=== PATIENT | male | born 1955 | race Caucasian/White ===

== ENCOUNTER → 2020-10-26 03:08 | Outpatient (CLI) | payer MEDICARE, SELFPAY ==
[2020-10-26 19:50] LABS: SARS-CoV-2 RNA PCR Negative
== END ==
PROVIDERS: PCP Nurse Practitioner Family; Visit Provider Internal Medicine Gastroenterology
DX: Z01.812 Encounter for preprocedural laboratory examination (principal); Z20.822 Contact with and (suspected) exposure to COVID-19
CPT/HCPCS: C9803; U0003; U0005

== ENCOUNTER 2020-10-29 00:28 | Day surgery (SDC) | payer MEDICARE, SELFPAY ==
[2020-10-16 15:30] VITALS: BMI 23.1
[2020-10-29 06:57] VITALS: BP 139/87; PULSE 77; RESP 18; TEMP 36.1; O2SAT 98; BMI 22.8
--- NOTE | 2020-10-29 07:03 | WPDANESEPPF ---
Anes - Initial Pre Proc Eval Procedure: Operation Date: 10/29/20 08:00 Proposed Procedures p Colonoscopy - Vinod Feliciano MD Date/Time: 10/29/20 07:03 Surgeon: Vinod Feliciano MD Pre Op Diagnosis: diarrhea Patient Data Age: 65 Gender: M Height: 1.91 m Weight: 83.1 kg Last Vital Signs Temp 36.1 C L 10/29/20 06:57 Pulse 77 10/29/20 06:57 Resp 18 10/29/20 06:57 BP 139/87 10/29/20 06:57 Pulse Ox 98 10/29/20 06:57 Allergies Allergy/AdvReac Type Severity Reaction Status Date / Time No Known Allergies Allergy Mild Verified 10/29/20 06:51 Home Medications Medication Instructions Recorded Confirmed Type ibuprofen 200 mg capsule 200 mg PO Q6H PRN 11/28/19 10/16/20 History acetaminophen 325 mg tablet 650 mg PO Q6H PRN 09/04/20 10/16/20 History aopsimwk-dtu-nzlcc acid 300 1 tablet PO DAILY 09/04/20 10/16/20 History mcg-lycopene 600 mcg-lutein 300 mcg tablet omega-3 fatty acids 1,000 mg 1,000 mg PO DAILY 09/04/20 10/16/20 History capsule sodium,potassium,mag sulfates 17.5 See Rx Instructions PO .COMPLEX 10/08/20 10/29/20 Rx gram-3.13 gram-1.6 gram oral soln #354 ml cholecalciferol (vitamin D3) 25 mcg PO DAILY 10/16/20 10/16/20 History [Vitamin D3] Patient hx anesthesia problems: none Family hx anesthesia problems: none PMFSH Past Medical History Medical History (Updated 10/29/20 @ 07:04 by Vince Luke DO) Abdominal pain Anemia, secondary to hemorrhoids Diarrhea GERD (gastroesophageal reflux disease) Hemorrhoids Metacarpophalangeal joint pain Surgical History Surgical History History of hemorrhoidectomy 2011 History of vasectomy 1991 Family History Family History Father Family history of Alzheimer's disease Hypertension Mother Family history of heart disease in male family member before age 55 Family history of cardiac disorder Family history of Alzheimer's disease Heart disease Grandparent Family history of Parkinson's disease Sibling Esophageal cancer Depression Social History Social History Smoking status: Never smoker Second hand tobacco smoke exposure: No Alcohol intake: current Drinks per week: 14 Substance use: never Substance use type: does not use Living arrangements: with family Gender identity (if verbalized by the patient): Male Spiritual care concerns: No Anes - Eval Final PreProcedure Day of Procedure 10/29/20 07:03 Patient weight: normal Heart: regular rate and rhythm Lungs: clear to auscultation and normal air movement Airway: Mallampati scale class II Neurological: alert and oriented Last oral intake: >/= 8 hours ASA classification: III Emergent: no Anesthetic plan: proceed Anesthesia type and monitoring: general GIVS and standard monitoring Informed Consent: The patient's anesthetic plan and its attendant risks and benefits were discussed with the patient/family/POA. Questions were solicited and answers provided to the satisfaction of the patient/family/POA.
[2020-10-29] MEDS: LACTATED RINGERS 1,000 ML 150 ML IV CONT (07:07)
--- NOTE | 2020-10-29 07:56 | WPDGICN ---
Assessment and Plan Assessment and plan (1) Diarrhea: Code(s): R19.7 - Diarrhea, unspecified Status: Acute Assessment and Plan: patient has persistent diarrhea lasting more than 2 months. He has had negative cultures with no response to empiric antibiotic trial. Colonoscopy today to assess for etiology of diarrhea. (2) Abdominal pain: Code(s): R10.9 - Unspecified abdominal pain Status: Acute (3) GERD (gastroesophageal reflux disease): Code(s): K21.9 - Gastro-esophageal reflux disease without esophagitis Status: Inactive Assessment and Plan: Currently stable on therapy GI Consult Note Consult date/time: 10/29/20 07:56 HPI: Catarino South is a 65 year old male Presents for screening colonoscopy. Patient reports diarrhea over the last 2-3 months. Has been rather persistent. Patient is taking empiric antibiotic trial of ciprofloxacin with no change in diarrhea. Stool cultures are performed found to be noncontributory. Most recent colonoscopy 2019 revealed internal hemorrhoids. His family history is noncontributory. No one else in the family has been ill. Patient denies any bleeding. Has had no specific abdominal pain. He denies weight loss. Because of ongoing abdominal diarrhea he presents today for colonoscopy. Review of Systems Review of Systems: All systems reviewed & are unremarkable except as noted in HPI and below PMFSH Past Medical History Medical History (Updated 10/29/20 @ 07:58 by Vinod Feliciano MD) Abdominal pain Anemia, secondary to hemorrhoids Diarrhea GERD (gastroesophageal reflux disease) Hemorrhoids Metacarpophalangeal joint pain Surgical History Surgical History History of hemorrhoidectomy 2011 History of vasectomy 1991 Family History Family History Father Family history of Alzheimer's disease Hypertension Mother Family history of heart disease in male family member before age 55 Family history of cardiac disorder Family history of Alzheimer's disease Heart disease Grandparent Family history of Parkinson's disease Sibling Esophageal cancer Depression Social History Social History Smoking status: Never smoker Second hand tobacco smoke exposure: No Alcohol intake: current Drinks per week: 14 Substance use: never Substance use type: does not use Living arrangements: with family Gender identity (if verbalized by the patient): Male Spiritual care concerns: No Meds Home Medications and Allergies Home Medications Medication Instructions Recorded Confirmed Type ibuprofen 200 mg capsule 200 mg PO Q6H PRN 11/28/19 10/16/20 History acetaminophen 325 mg tablet 650 mg PO Q6H PRN 09/04/20 10/16/20 History hkljrech-kaq-ackhj acid 300 1 tablet PO DAILY 09/04/20 10/16/20 History mcg-lycopene 600 mcg-lutein 300 mcg tablet omega-3 fatty acids 1,000 mg 1,000 mg PO DAILY 09/04/20 10/16/20 History capsule sodium,potassium,mag sulfates 17.5 See Rx Instructions PO .COMPLEX 10/08/20 10/29/20 Rx gram-3.13 gram-1.6 gram oral soln #354 ml cholecalciferol (vitamin D3) 25 mcg PO DAILY 10/16/20 10/16/20 History [Vitamin D3] Allergies Allergy/AdvReac Type Severity Reaction Status Date / Time No Known Allergies Allergy Mild Verified 10/29/20 06:51 Vital Signs Vital Signs - 24 hr 10/29/20 06:57 Temperature 97 F L Pulse Rate 77 Respiratory Rate 18 Blood Pressure 139/87 Pulse Oximetry 98 Exam Narrative: Exam Narrative: Physical exam reveals patient to be alert. Vital signs stable. HEENT exam is unremarkable. Patient is anicteric. Lungs are clear to auscultation and percussion. Heart is without murmur or extra sounds. Abdominal exam bowel sounds are present soft nontender with no organomegaly. Digital external
[2020-10-29] MEDS: SIMETHICONE ORAL SUSPENSION 20 MG/0.3 ML 30 ML BOTTLE 0.6 ML IRRIGATION (08:10)
[2020-10-29 08:19] VITALS: BP 118/88; PULSE 71; RESP 18; O2SAT 97
[2020-10-29 08:29] VITALS: BP 116/84; PULSE 72; RESP 18; O2SAT 98
[2020-10-29 08:39] VITALS: BP 134/98; PULSE 66; RESP 20; O2SAT 99
== END 2020-10-29 08:48 | disposition home or self-care (01) ==
PROVIDERS: PCP Nurse Practitioner Family; Visit Provider Internal Medicine Gastroenterology
PROC: 0DJD8ZZ Inspection of Lower Intestinal Tract, Via Natural or Artificial Opening Endoscopic (ICD-10-PCS; CPT 45378; principal; 2020-10-29 08:00)
DX: R19.7 Diarrhea, unspecified (principal); K64.8 Other hemorrhoids; K21.9 Gastro-esophageal reflux disease without esophagitis; R10.9 Unspecified abdominal pain; D64.9 Anemia, unspecified
CPT/HCPCS: 45380; 88305; C9803; J2704; J7120; U0003; U0005

== ENCOUNTER 2020-12-17 07:35 | Outpatient (CLI) | payer MEDICARE, SELFPAY ==
--- NOTE | ~2020-12-17 | XR_ITS ---
EXAMINATION: XR UGIAC w small bowel DATE: 12/17/2020 09:55 INDICATION: Diarrhea TECHNIQUE: The patient drank thick barium, gas-producing crystals, and thin barium. Conventional supi ne abdomen radiographs and fluoroscopic spot radiographs of the esophagus, stomach, and proximal smal l bowel were obtained. Additional overhead radiographs were obtained during the transit through the s mall bowel. Spot fluoroscopic images of the small bowel were obtained upon contrast reaching the cec um. A total of 9 radiographs and 764 fluoroscopic images were obtained. Fluoroscopy exposure time was 2.3 minutes. Total DAP was 37.725 mGycm^2. COMPARISON: 08/15/2011 FINDINGS: There is a small pulsion diverticulum along the left posterior wall of the esophagus locate d approximately 15 cm above the gastroesophageal junction. The esophagus is otherwise normal without mass or stricture. Esophageal motility is normal. There is no hiatal hernia. There was no gastroesoph ageal reflux with provocative maneuvers. The stomach and proximal small bowel are normal. Transit time from the stomach to proximal colon was approximately 1 hour and 30 minutes. There is nor mal caliber and mucosal fold pattern throughout the small bowel. Terminal ileum is normal. There is p rominent peristaltic activity throughout the small bowel with no tethering or abnormal mass effect ob served upon the small bowel with real-time fluoroscopy. IMPRESSION: 1. Small pulsion diverticulum at the mid esophagus. Otherwise normal upper GI study. 2. Very active peristaltic activity throughout the small bowel. Otherwise unremarkable small bowel fo llow-through. Reviewed, dictated and finalized at location A. IMPRESSION: 1. Small pulsion diverticulum at the mid esophagus. Otherwise normal upper GI s tudy. 2. Very active peristaltic activity throughout the small bowel. Otherwise unrem arkable small bowel follow-through.
== END 2020-12-17 07:36 | disposition home or self-care (01) ==
PROVIDERS: PCP Nurse Practitioner Family; Visit Provider Internal Medicine Gastroenterology
DX: R19.7 Diarrhea, unspecified (principal)
CPT/HCPCS: 74246; 74248

== ENCOUNTER → 2021-01-14 10:53 | Outpatient (CLI) | payer MEDICARE, SELFPAY ==
--- NOTE | ~2021-01-14 | XR_ITS ---
EXAMINATION: XR chest 2V EXAM DATE: 01/14/2021 11:09 INDICATION: R05 - Cough . TECHNIQUE: Frontal and lateral projections of the chest obtained and reviewed. Comparison is made to prior examination from 08/21/2018. FINDINGS: Symmetric nodular densities likely patient's nipples. The lungs are clear. There are no p leural effusions. The cardiomediastinal silhouette is within normal limits. There is no pneumothora x suspected. The bones and soft tissues are unremarkable. IMPRESSION: No acute cardiopulmonary findings. Reviewed, dictated and finalized at location B.
== END ==
PROVIDERS: PCP Family Medicine; Visit Provider Nurse Practitioner Family
DX: R05 Cough (principal)
CPT/HCPCS: 71046

== ENCOUNTER 2021-08-08 10:03 | Outpatient (CLI) | payer MEDICARE, SELFPAY ==
[2021-08-16 21:28] LABS: Pancreatic Elastase, Stool >500 mcg/g
== END 2021-08-08 10:04 | disposition home or self-care (01) ==
LOC: ANHLAB 10:06
PROVIDERS: PCP Family Medicine; Visit Provider Internal Medicine Gastroenterology
DX: R19.7 Diarrhea, unspecified (principal)
CPT/HCPCS: 82653

== ENCOUNTER 2022-02-12 07:46 | Outpatient (CLI) | payer MEDICARE, SELFPAY ==
--- NOTE | 2022-03-15 15:46 | WPDSLEEPSTUD ---
Sleep Study Date of Study: 02/12/22 Ordering Provider: Ninoska Dias NP Interpreting Physician: Sakshi Alvarez MD Sleep Study Type: Split Polysomnogram Height: 1.91 m Weight: 87.997 kg Body Mass Index: 24.2 Neck Circumference (inches): 16 Centuria: 8 Reason for Sleep Study Loud snoring, witnessed apneas, and 2 nondiagnostic home sleep tests Sleep History Catarino South is a 67-year-old man with complaints of loud snoring and witnessed apneas. He has talked with his dentist about snoring. He had 2 different home sleep test without a definitive diagnosis. He rarely awakens from sleep feeling short of breath. Occasionally awakens at night with heartburn, belching or coughing. He frequently snores and frequently this is loud enough that his complains about it. He frequently has trouble sleeping with a cold. He occasionally wakes up gasping for breath at night. Frequently has breathing problems at night observed by others. He rarely sweats excessively at night. He does not notice his heart pounding or beating irregularly at night. He rarely falls asleep during the day, rarely falls asleep involuntarily never falls asleep while driving. He does not have loss of muscle tone with strong emotion. He does not have daytime difficulties due to excessive sleepiness. He does not feel paralyzed on waking or falling asleep. He occasionally has vivid dreamlike scenes upon awakening or falling asleep. He does not feel afraid to go to sleep. He rarely has nightmares. He occasionally remembers his dreams. He occasionally has racing thoughts. He occasionally feels sad or depressed. He rarely feels anxious. Occasionally has muscular tension. He rarely notices parts of his body jerking. He occasionally kicks at night. He rarely has crawling and aching feelings in his legs. Occasionally has leg pain at night. He rarely has morning jaw pain. He does not grind his teeth during sleep. He rarely is bothered by pain during the day, rarely awakened by pain at night. He rarely wakes up feeling stiff in the morning with sore achy muscles are pain in the neck and spine. He has sexual problems, memory problems, headaches, nightmares, stomach problems and he takes antacids regularly. Normal bedtime is 10:00 p.m. taking 10-20 minutes to fall asleep always waking once at night, frequently waking twice at night. Wakes use the bathroom, returns to sleep within 10-15 minutes. He wakes the morning by 530-630 a.m.. His weekend schedule is the same. He estimates getting 7 8 hours of sleep at night. He does not take naps in the afternoon or evening. A short nap lasting 10 or 15 minutes is not refreshing. He often awakens feeling refreshed in the morning. Habits: Never smoked tobacco. Caffeine 2-3 cups a day. Alcohol 1-2 per day. No recreational drugs. [facility] Past Medical History Medical History Abdominal pain Anemia, secondary to hemorrhoids BMI 25.0-25.9,adult Cough Diarrhea Elevated blood pressure reading in office with white coat syndrome, without diagnosis of hypertension Erectile dysfunction Fatigue GERD (gastroesophageal reflux disease) Hemorrhoids IBS (irritable bowel syndrome) Irritable bowel syndrome with diarrhea Metacarpophalangeal joint pain Nocturia Seasonal allergies Snoring Witnessed episode of apnea Surgical History Surgical History History of hemorrhoidectomy 2010 History of vasectomy 1991 Family History Family History Father Family history of Alzheimer's disease Hypertension Mother Family history of heart disease in male family member before age 55 Family history of cardiac disorder Family history of Alzheimer's disease Heart disease Grandparent Family history of Parkinson's disease Sibling Esophageal cancer Depression Social Histo
[2022-03-15 16:02] VITALS: BMI 24.2
== END 2022-02-13 06:45 | disposition home or self-care (01) ==
PROVIDERS: PCP Nurse Practitioner Family; Visit Provider Nurse Practitioner Family
DX: G47.10 Hypersomnia, unspecified (principal); G47.33 Obstructive sleep apnea (adult) (pediatric); R06.83 Snoring
CPT/HCPCS: 95811

== ENCOUNTER 2023-02-28 04:49 | Emergency (ER) | payer MEDICARE, SELFPAY ==
--- NOTE | ~2023-02-28 | CT_ITS ---
EXAMINATION: CT abdomen pelvis wo con DATE: 02/28/2023 07:04 INDICATION: Flank pain. TECHNIQUE: Computed tomography (CT) of the abdomen and pelvis was performed without intravenous contr ast. Automated exposure control and iterative reconstruction technique were employed. The dose-length product was 711.77 mGy-cm. COMPARISON: None. FINDINGS: The visualized portions of the lung bases demonstrate mild atelectasis. No pleural effusion . The heart size is normal. No pericardial effusion. The liver, gallbladder, and pancreas are normal. Calcifications in the spleen are consistent with old granulomatous disease. The left adrenal gland i s normal. There is a 1.9 cm mass in the right adrenal gland measuring low-attenuation, consistent wit h an adenoma. There is mild right hydronephrosis and hydroureter. There is a 5 mm stone in distal rig ht ureter. Left kidney is normal. The prostate is mildly enlarged. There are no dilated loops of eddi l. The appendix is normal. There are no pathologically enlarged lymph nodes. There is no free intrape ritoneal fluid. There is severe lumbar spondylosis. IMPRESSION: 1. 5 mm stone in distal right ureter with mild right hydronephrosis and hydroureter. Reviewed, dictated and finalized at location E. IMPRESSION: 1. 5 mm stone in distal right ureter with mild right hydronephrosis and hydrour eter.
[2023-02-28 05:09] LABS: Basophils Percent Auto 0.4 % (0.2-1.2); Eosinophils Percent Auto 0.5 % (0-4.4); Hematocrit 40.6 % (42.0-52.0); Immature Granulocyte Absolute 0.01 K/mm3 (0.00-0.031); Immature Granulocyte Percent A 0.1 % (0-0.5); Lymphocytes Absolute Auto 1.65 K/mm3 (0.9-3.2); Lymphocytes Percent Auto 22.5 % (18.3-44.2); Mean Corpuscular HGB Conc 34.5 g/dl (32-36); Mean Corpuscular Volume 95.8 fl (80-100); Mean Platelet Volume 11.2 fl (7.4-10.4); Monocytes Absolute Auto 0.4 K/mm3 (0.1-0.6); Monocytes Percent Auto 5.3 % (2.6-8.5); Neutrophils Absolute Auto 5.2 K/mm3 (1.3-6.7); Neutrophils Percent Auto 71.2 % (45.5-73.1); Platelet Count Result 200 k/mm3 (150-375); Red Blood Count 4.24 M/mm3 (4.6-6.20); Red Cell Distribution Width 12.8 % (11.5-14.5); White Blood Count 7.3 K/mm3 (4.5-10.0)
[2023-02-28 05:17] VITALS: BP 154/101; PULSE 62; RESP 16; TEMP 36.1; O2SAT 99
[2023-02-28 05:19] LABS: Alanine Aminotransferase 19 U/L (6-50); Albumin Level 4.4 g/dL (3.5-5.1); Alkaline Phosphatase 60 U/L (38-126); Anion Gap 3 mmol/L (8-16); Aspartate Amino Transferase 27 U/L (17-59); Bilirubin,Total 0.5 mg/dL (0.2-1.3); Blood Urea Nitrogen 20 mg/dL (9-20); Carbon Dioxide 27 mmol/L (22-30); Chloride 107 mmol/L (98-107); Estimated Glomerular Filt Rate > 60; Glucose 141 mg/dL (65-110); Potassium 4.1 mmol/L (3.4-5.0); Sodium 137 mmol/L (137-145)
[2023-02-28 06:26] LABS: Appearance Urine Cloudy (Clear); Bacteria Urine None Seen /hpf; Bilirubin Urine Negative (Negative); Blood Urine 1+ (Negative); Color Urine Yellow (Yellow); Glucose Urine UA Negative (Negative); Ketones Urine Negative (Negative); Leukocyte Esterase Ur Negative LEU/UL (Negative); Nitrate Urine Negative (Negative); Non Pathogenic Casts 0-2; Protein Urine Negative (Negative); Specific Grav Ur 1.022 (1.001-1.035); Squamous Epithelial Cell Urine None seen /hpf (Few); Urobilinogen Urine 0.2 mg/dL (<2.0); WBC Urine 0-5 /hpf; pH Urine 6.5 (5.0-9.0)
[2023-02-28 06:36] VITALS: BP 171/105; PULSE 63; RESP 14; O2SAT 100
[2023-02-28 06:38] LABS: Add Urine Microscopic? YES
[2023-02-28] MEDS: SODIUM CHLORIDE 0.9% IV 1,000 ML 999 ML IV CONT (06:54)
[2023-02-28] MEDS: MORPHINE SULFATE (*CRX) 4 MG/ML INJ IV PUSH (06:54)
[2023-02-28] MEDS: ONDANSETRON INJ 4 MG/2 ML VIAL IV PUSH (06:54)
[2023-02-28 07:17] VITALS: BP 140/95
[2023-02-28 07:46] VITALS: BP 135/94
--- NOTE | 2023-02-28 07:54 | ED.ABDPAIN ---
HPI - Abdominal Pain General Chief Complaint: Urogenital-Male Stated Complaint: flank pain Time Seen by Provider: 02/28/23 07:33 History of Present Illness HPI narrative: 67-year-old male with history of IBS presented to the emergency department for evaluation of right flank pain. Patient states symptoms started last night. Patient denies any prior history of kidney stone. Patient denies any associated nausea or vomiting. Patient denies any fevers Related Data Home Medications Medication Instructions Recorded Confirmed ibuprofen 200 mg capsule 200 mg PO Q6H PRN Pain 11/28/19 07/08/22 acetaminophen 325 mg tablet 650 mg PO Q6H PRN Pain 09/04/20 07/08/22 (Tylenol) njkykudd-ob-morwk 300 mcg-K 60 1 tablet PO DAILY 09/04/20 07/08/22 mcg-lycop 600 mcg-lutein 300 mcg tablet (Centrum Silver Ultra Men's) famotidine 20 mg tablet (Pepcid) 20 mg PO DAILY 12/24/20 07/08/22 psyllium husk 3.4 gram/5.4 gram 1 tbsp PO DAILY 01/17/22 07/08/22 oral powder (Metamucil) Allergies Allergy/AdvReac Type Severity Reaction Status Date / Time No Known Allergies Allergy Mild Verified 02/28/23 06:38 Review of Systems Review of Systems: All systems reviewed & are unremarkable except as noted in HPI and below PMFSH Past Medical History Medical History (Updated 02/28/23 @ 08:00 by Peng Palmer MD) Abdominal pain Anemia, secondary to hemorrhoids BMI 25.0-25.9,adult Cough Diarrhea Elevated blood pressure reading in office with white coat syndrome, without diagnosis of hypertension Erectile dysfunction Fatigue GERD (gastroesophageal reflux disease) Hemorrhoids IBS (irritable bowel syndrome) Irritable bowel syndrome with diarrhea Metacarpophalangeal joint pain Nocturia KENISHA (obstructive sleep apnea) Seasonal allergies Skin lesion of back Snoring Witnessed episode of apnea Surgical History Surgical History History of hemorrhoidectomy 2010 History of vasectomy 1991 Family History Family History Father Family history of Alzheimer's disease Hypertension Mother Family history of heart disease in male family member before age 55 Family history of cardiac disorder Family history of Alzheimer's disease Heart disease Grandparent Family history of Parkinson's disease Sibling Esophageal cancer Depression Social History Social History (Updated 07/08/22 @ 08:17 by Elizabeth Plascencia [facility]) Smoking status: Never smoker Second hand tobacco smoke exposure: No Alcohol intake: current Drinks per week: 10 Alcohol use details: Beer/Whiskey Substance use: never Substance use type: does not use Lack of Transportation: No Lack of Food: Never True Current Housing: I Have Housing Concerned About Future Housing: No Difficulty Paying Gas/Electric Bills: No Difficulty Paying for Meds: No Currently Unemployed: No Education: Associate Degree Difficulty w/ Childcare or Family Care: No Living arrangements: with family Occupation/Education: retired Gender identity (if verbalized by the patient): Male Sexual Orientation (if Verbalized by the Patient): Straight or Heterosexual Spiritual care concerns: No Agree to blood products: Yes Exam Narrative: APPEARANCE: Uncomfortable due to flank pain HEAD: normocephalic, atraumatic. EYES: PERRLA/EOMI, conjunctivae clear. NOSE: Normal no drainage EARS:TMS clear with good light reflex. THROAT: Pharynx clear, no exudate. NECK: Supple. No adenopathy, no masses. RESPIRATORY: Airway patent, respirations nonlabored. Clear to auscultation bilaterally, no rales, rhonchi, wheezing. CARDIOVASCULAR: Regular rate and rhythm without murmurs rubs or gallops. ABDOMINAL: Right lower quadrant and right CVA tenderness to palpation MUSCULOSKELETAL: Moves all extremities. Strength/ROM intact, No edema, No calf tenderness. NEURO: Alert. Cranial nerve
[2023-02-28 08:00] VITALS: BP 141/93
[2023-02-28] MEDS: HYDROcodone/acetaminophen (*CRX) 5-325 MG TABLET 1 TAB PO (08:09)
[2023-02-28] MEDS: TAMSULOSIN HCL 0.4 MG CAPSULE PO (08:09)
[2023-02-28] MEDS: KETOROLAC 30 MG/ML VIAL (*BKC) IM (09:03)
== END 2023-02-28 09:09 | disposition home or self-care (01) ==
PROVIDERS: Emergency Medicine; Emergency Provider Emergency Medicine; PCP Internal Medicine
DX: N13.2 Hydronephrosis with renal and ureteral calculous obstruction (principal); K21.9 Gastro-esophageal reflux disease without esophagitis; K58.9 Irritable bowel syndrome, unspecified; G47.33 Obstructive sleep apnea (adult) (pediatric)
CPT/HCPCS: 36415; 74176; 80053; 81001; 85025; 96361; 96372; 96374; 96375; 99284; A9270; J1885; J2270; J2405; J7030

== ENCOUNTER 2023-03-03 02:07 | Day surgery (SDC) | payer MEDICARE, SELFPAY ==
--- NOTE | 2023-03-02 16:24 | SUR.PREOP ---
Report to the Outpatient Waiting Room, entrance under the green pavilion located off [facility], at time 1230 on date 03/03/23. Planned Procedure Time: 1430. Time changes happen often and if your time is changed the preop area will call you the afternoon before. - You and your visitor will be asked to self-screen and do not enter if you have any COVID symptoms. - A mask is optional within the hospital at this time. Patients may have clear liquids (water, carbonated beverages, clear teas, apple juice) until 3 hours prior to surgery with a maximum of 20 ounces. - No food from midnight until time of surgery - Infants may have breast milk until 4 hours before surgery, formula 6 hours prior to surgery. - Children will be allowed to drink immediately following surgery. If applicable, please bring a bottle or sippy cup to assist with drinking. Juice, water, soda, and popsicles are readily available. For infants on formula, please bring formula the day of surgery. Pacifiers are allowed. Take the following medications with a SIP of water the morning of surgery: ___HYDROCODONE/ACETAMINOPHEN, ACETAMINOPHEN___ DO NOT STOP ANY OF YOUR OTHER PRESCRIPTION MEDICATIONS PRIOR TO SURGERY ?EXCEPT THE FOLLOWING Medications to discontinue per physician N/A Date to take last dose Please no make-up, nail hebrew, hairspray, perfume, deodorant, or body powder the day of surgery. No jewelry (including any body piercings) or valuables the day of surgery, leave them at home. Please take a shower or bath the night before, or the morning of, surgery with an antibacterial soap. Wear comfortable, loose fitting clothing. Children are encouraged to wear pajamas. - Jewelry must be removed prior to entering the operating room. Rings and piercings that are not removed may be cut off. - The hospital will not accept responsibility for valuables. - Please leave all valuables, including medications, at home the day of surgery. If you are going home after surgery, a licensed m48/m60 tank driver must drive you home. - NO public transportation without another adult if you receive anesthesia. - We recommend that an adult stay with you for 24 hours following discharge. - We also recommend that you do not drive, make important decision, drink alcoholic beverages, or take any drugs that were not prescribed by your health care provider for at least 24 hours after your discharge time. For Pediatric surgeries, we recommend two adults accompany the child home. Follow any additional instructions given to you from your surgeon. If you or anyone in your household have experienced Covid symptoms in the past week, please notify your surgeon or the nurse liaison at the phone number below for possible testing. Telephone instructions given to CHRIS TELLO and asked if any additional questions and then verbalized understanding. Patient advised to call surgeon office or pre surgery nurse liaison [phone] if any additional questions.
[2023-03-02 16:32] VITALS: BMI 25.6
[2023-03-03] VITALS (7 sets, daily range): BP systolic 108–152; BP diastolic 74–92; PULSE 74–94; RESP 14–16; TEMP 36.7–36.8; O2SAT 98–100
--- NOTE | ~2023-03-03 | XR_ITS ---
EXAMINATION: XR fluoroscopy no charge DATE: 03/03/2023 14:31 INDICATION: Right ureteral stone. TECHNIQUE: 4 intraoperative fluoroscopic views of the abdomen and pelvis were obtained. I was not pre sent. Fluoroscopy exposure time was 13 seconds. COMPARISON: CT abdomen and pelvis 02/28/2023 FINDINGS: Images demonstrate a wire in the right ureter. IMPRESSION: 1. Wire in the right ureter. Reviewed, dictated and finalized at location E.
[2023-03-03] MEDS: LACTATED RINGERS 1,000 ML 30 ML IV CONT (13:15)
[2023-03-03] MEDS: fentaNYL CITRATE INJ (*CRX) 100 MCG/2 ML VIAL 50 MCG IV PUSH (13:30)
--- NOTE | 2023-03-03 13:32 | WPDHPUPDATE1 ---
History and Physical Update Update Date/Time: 03/03/23 13:32 History and Physical has been reviewed, including an updated exam of the patient. There are NO changes in the patient's condition. Risks, benefits, and alternatives have been discussed and questions answered. Patient agrees to proceed with procedure.
--- NOTE | 2023-03-03 14:05 | WPDANESEPPF ---
Anes - Initial Pre Proc Eval Procedure: Operation Date: 03/03/23 14:30 Proposed Procedures p Cystoscopy, Right Retrograde Pyelogram, Right Ureteroscopy, Right Ureteral Stent Placement, Stone Extraction, Possible Holmium Laser Lithotripsy - Guanakito Richmond MD Date/Time: 03/03/23 14:05 Surgeon: Guanakito Richmond MD Pre Op Diagnosis: Right ureteral stone Patient Data Age: 68 Gender: M Height: 1.91 m Weight: 94.1 kg Last Vital Signs Temp 36.7 C 03/03/23 13:30 Pulse 78 03/03/23 13:30 Resp 16 03/03/23 13:30 BP 148/88 H 03/03/23 13:30 Pulse Ox 100 03/03/23 13:30 O2 Del Method Room Air 03/03/23 13:30 Allergies Allergy/AdvReac Type Severity Reaction Status Date / Time No Known Allergies Allergy Mild Verified 03/03/23 13:38 Home Medications Medication Instructions Recorded Confirmed Type ibuprofen 200 mg capsule 200 mg PO Q6H PRN Pain 11/28/19 03/02/23 History acetaminophen 325 mg tablet 650 mg PO Q6H PRN Pain 09/04/20 03/02/23 History (Tylenol) [id number] 300 mcg-K 60 1 tablet PO DAILY 09/04/20 03/02/23 History mcg-lycop 600 mcg-lutein 300 mcg tablet (Centrum Silver Ultra Men's) famotidine 20 mg tablet (Pepcid) 20 mg PO DAILY 12/24/20 03/02/23 History psyllium husk 3.4 gram/5.4 gram 1 tbsp PO DAILY 01/17/22 03/02/23 History oral powder (Metamucil) dicyclomine 20 mg tablet 20 mg PO TID PRN ibs #90 tabs 11/03/22 03/02/23 Rx hydrocodone 5 mg-acetaminophen 325 1 tablet PO Q12H PRN pain #14 tabs 02/28/23 03/02/23 Rx mg tablet ondansetron 4 mg disintegrating 4 mg PO Q8H PRN nausea and 02/28/23 03/02/23 Rx tablet vomiting #20 tabs tamsulosin 0.4 mg capsule (Flomax) 0.4 mg PO DAILY #14 caps 02/28/23 03/02/23 Rx amitriptyline 25 mg tablet 25 mg PO HS IBS 03/02/23 03/02/23 History Patient hx anesthesia problems: none Family hx anesthesia problems: none Results Review: All pre-operative results and documents have been reviewed as part of the pre-operative evaluation. [facility] Past Medical History Medical History Abdominal pain Anemia, secondary to hemorrhoids BMI 25.0-25.9,adult Cough Diarrhea Elevated blood pressure reading in office with white coat syndrome, without diagnosis of hypertension Erectile dysfunction Fatigue GERD (gastroesophageal reflux disease) Hemorrhoids IBS (irritable bowel syndrome) Irritable bowel syndrome with diarrhea Metacarpophalangeal joint pain Nocturia KENISHA (obstructive sleep apnea) Seasonal allergies Skin lesion of back Snoring Witnessed episode of apnea Surgical History Surgical History History of hemorrhoidectomy 2010 History of vasectomy 1991 Family History Family History Father Family history of Alzheimer's disease Hypertension Mother Family history of heart disease in male family member before age 55 Family history of cardiac disorder Family history of Alzheimer's disease Heart disease Grandparent Family history of Parkinson's disease Sibling Esophageal cancer Depression Social History Social History Smoking status: Never smoker Second hand tobacco smoke exposure: No Alcohol intake: current Drinks per week: 8 Alcohol use details: Beer/Whiskey Substance use: never Substance use type: does not use Lack of Transportation: No Lack of Food: Never True Current Housing: I Have Housing Concerned About Future Housing: No Difficulty Paying Gas/Electric Bills: No Difficulty Paying for Meds: No Currently Unemployed: No Education: Associate Degree Difficulty w/ Childcare or Family Care: No Living arrangements: with family Occupation/Education: retired Gender identity (if verbalized by the patient): Male Sexual Orientation (if Verbalized by th
[2023-03-03] MEDS: ceFAZolin 2 GM/D5W 50 ML 2 GM/50 ML BAG IVPB (14:10)
[2023-03-03] MEDS: LIDOCAINE HCL 2% GEL UROJET 10 ML PKG MUCOUS MEM (14:22)
[2023-03-03] MEDS: KETOROLAC 15 MG/ML VIAL (*BKC) IV PUSH (14:28)
--- NOTE | 2023-03-03 14:38 | P.OP_ITS ---
Procedure Note - Detailed Date of Procedure 03/03/23 Pre-op Diagnosis Right ureteral stone Post-op Diagnosis Same Procedure Performed Cystoscopy, right ureteroscopy with stone extraction Surgeon Guanakito Richmond MD Anesthesia General Description of Procedure The patient was brought to the operative suite where he is prepped and draped in a routine sterile fashion while in the dorsal lithotomy position after the uneventful induction of a general LMA anesthetic. A 19F rigid cystoscope was placed in the bladder. There are no urethral strictures. His prostatic urethra measures, approximately, 2.0cm with no median lobe enlargement. The bladder mucosa was endoscopically normal without hyperemia or neoplasm. There was a single, orthotopic ureteral orifice bilaterally. A 0.035 glidewire was advanced into the right renal pelvis under fluoroscopy. The distal ureter was dilated with an 8F/10F ureteral dilator. Ureteroscopy was undertaken with a short, tapered, semi-rigid ureteroscope and the stone was extracted with ease using a 1.9F Escape disposable stone basket. Due to the ease of this manipula tion I opted not to place a ureteral stent. The patient's bladder was emptied and was taken to the recovery room having tolerated this procedure well. Estimated Blood Loss -1.0 Drains No Packing No Pathology None sent Complications No immediate complications Condition Stable Disposition PACU
== END 2023-03-03 16:12 | disposition home or self-care (01) ==
PROVIDERS: PCP Internal Medicine; Visit Provider Urology
PROC: (CPT 52352; principal; 2023-03-03 14:30)
DX: N20.1 Calculus of ureter (principal); K58.0 Irritable bowel syndrome with diarrhea; K21.9 Gastro-esophageal reflux disease without esophagitis; G47.33 Obstructive sleep apnea (adult) (pediatric); D64.9 Anemia, unspecified
CPT/HCPCS: 52352; 82365; 88300; 99199; C1769; J0690; J1885; J2250; J3010; J7120

== ENCOUNTER 2023-03-23 00:29 | Day surgery (SDC) | payer MEDICARE, SELFPAY ==
--- NOTE | 2023-03-16 14:32 | PC.NURSE ---
Report to the Outpatient Waiting Room, entrance under the green pavilion located off [facility], at time _0600 on date __03/23/23 . Planned Procedure Time: _0730 . Time changes happen often and if your time is changed the preop area will call you the afternoon before. - You and your visitor will be asked to self-screen and do not enter if you have any COVID symptoms. - A mask is optional within the hospital at this time. Patients may have clear liquids (water, carbonated beverages, clear teas, apple juice) until 3 hours prior to surgery with a maximum of 20 ounces. - No food from midnight until time of surgery - Infants may have breast milk until 4 hours before surgery, infant formula 6 hours prior to surgery. - Children will be allowed to drink immediately following surgery. If applicable, please bring a bottle or sippy cup to assist with drinking. Juice, water, soda, and popsicles are readily available. For infants on formula, please bring formula the day of surgery. Pacifiers are allowed. Take the following medications with a SIP of water the morning of surgery: ___NONE DO NOT STOP ANY OF YOUR OTHER PRESCRIPTION MEDICATIONS PRIOR TO SURGERY ?EXCEPT THE FOLLOWING Medications to discontinue per physician ____ALL VITAMINS AND SUPPLEMENTS 3 DAYS PRE OP .LAST DOSE 03/19/23 Please no make-up, nail uzbek, hairspray, perfume, deodorant, or body powder the day of surgery. No jewelry (including any body piercings) or valuables the day of surgery, leave them at home. Please take a shower or bath the night before, or the morning of, surgery with an antibacterial soap. Wear comfortable, loose fitting clothing. Children are encouraged to wear pajamas. - Jewelry must be removed prior to entering the operating room. Rings and piercings that are not removed may be cut off. - The hospital will not accept responsibility for valuables. - Please leave all valuables, including medications, at home the day of surgery. If you are going home after surgery, a licensed school bus driver must drive you home. - NO public transportation without another adult if you receive anesthesia. - We recommend that an adult stay with you for 24 hours following discharge. - We also recommend that you do not drive, make important decision, drink alcoholic beverages, or take any drugs that were not prescribed by your health care provider for at least 24 hours after your discharge time. For Pediatric surgeries, we recommend two adults accompany the child home. Follow any additional instructions given to you from your surgeon. If you or anyone in your household have experienced Covid symptoms in the past week, please notify your surgeon or the nurse liaison at the phone number below for possible testing. Telephone instructions given to __PT and asked if any additional questions and then verbalized understanding. Patient advised to call surgeon office or pre surgery nurse liaison [phone] if any additional questions.
[2023-03-16 14:37] VITALS: BMI 25.0
[2023-03-23] VITALS (9 sets, daily range): BP systolic 134–152; BP diastolic 82–103; PULSE 64–76; RESP 13–17; TEMP 36.2–36.8; O2SAT 99–100
[2023-03-23] MEDS: ACETAMINOPHEN 500 MG TABLET 1000 MG PO (06:40)
[2023-03-23] MEDS: LACTATED RINGERS 1,000 ML 30 ML IV CONT ×2 (06:55→08:28)
[2023-03-23] MEDS: OXYMETAZOLINE HCL 0.05% NAS 15 ML BTL (*BKC) 1 SPRAY NASAL (06:56)
--- NOTE | 2023-03-23 07:11 | WPDANESEPPF ---
Anes - Initial Pre Proc Eval Procedure: Operation Date: 03/23/23 07:30 Proposed Procedures p Bilateral Turbinate Reduction - Rohan Huffman MD s Endoscopic Septoplasty - Rohan Huffman MD Date/Time: 03/23/23 07:11 Surgeon: Rohan Huffman MD Pre Op Diagnosis: Dev Septum, Turbinate Hypertrophy Patient Data Age: 68 Gender: M Height: 1.91 m Weight: 90 kg Last Vital Signs Temp 98.3 F 03/23/23 06:59 Pulse 72 03/23/23 06:59 Resp 16 03/23/23 06:59 BP 142/90 H 03/23/23 06:59 Pulse Ox 100 03/23/23 06:59 O2 Del Method Room Air 03/23/23 06:59 Allergies Allergy/AdvReac Type Severity Reaction Status Date / Time No Known Allergies Allergy Mild Verified 03/23/23 06:26 Home Medications Medication Instructions Recorded Confirmed Type ibuprofen 200 mg capsule 200 mg PO Q6H PRN Pain 11/28/19 03/16/23 History acetaminophen 325 mg tablet 650 mg PO Q6H PRN Pain 09/04/20 03/16/23 History (Tylenol) [id number] 300 mcg-K 60 1 tablet PO DAILY 09/04/20 03/16/23 History mcg-lycop 600 mcg-lutein 300 mcg tablet (Centrum Silver Ultra Men's) famotidine 20 mg tablet (Pepcid) 20 mg PO HS 12/24/20 03/16/23 History psyllium husk 3.4 gram/5.4 gram 1 tbsp PO DAILY 01/17/22 03/16/23 History oral powder (Metamucil) hydrocodone 5 mg-acetaminophen 325 1 tablet PO Q12H PRN pain #14 tabs 02/28/23 03/16/23 Rx mg tablet ondansetron 4 mg disintegrating 4 mg PO Q8H PRN nausea and 02/28/23 03/16/23 Rx tablet vomiting #20 tabs amitriptyline 25 mg tablet 25 mg PO HS IBS 03/02/23 03/16/23 History ascorbic acid (vitamin C) 1,000 mg 1,000 mg PO DAILY 03/16/23 03/16/23 History tablet,extended release dicyclomine 20 mg tablet 20 mg PO DAILY PRN ibs 03/16/23 03/16/23 History Patient hx anesthesia problems: none Family hx anesthesia problems: none Results Review: All pre-operative results and documents have been reviewed as part of the pre-operative evaluation. [facility] Past Medical History Medical History Abdominal pain Anemia, secondary to hemorrhoids BMI 25.0-25.9,adult Cough Diarrhea Elevated blood pressure reading in office with white coat syndrome, without diagnosis of hypertension Erectile dysfunction Fatigue GERD (gastroesophageal reflux disease) Hemorrhoids IBS (irritable bowel syndrome) Irritable bowel syndrome with diarrhea Metacarpophalangeal joint pain Nocturia KENISHA (obstructive sleep apnea) Seasonal allergies Skin lesion of back Snoring Witnessed episode of apnea Surgical History Surgical History History of hemorrhoidectomy 2010 History of vasectomy 1991 Family History Family History Father Family history of Alzheimer's disease Hypertension Mother Family history of heart disease in male family member before age 55 Family history of cardiac disorder Family history of Alzheimer's disease Heart disease Grandparent Family history of Parkinson's disease Sibling Esophageal cancer Depression Social History Social History Smoking status: Never smoker Second hand tobacco smoke exposure: No Alcohol intake: current Drinks per week: 8 Alcohol use details: Beer/Whiskey Substance use: never Substance use type: does not use Lack of Transportation: No Lack of Food: Never True Current Housing: I Have Housing Concerned About Future Housing: No Difficulty Paying Gas/Electric Bills: No Difficulty Paying for Meds: No Currently Unemployed: No Education: Associate Degree Difficulty w/ Childcare or Family Care: No Living arrangements: with family Occupation/Education: retired Gender identity (if verbalized by the patient): Male Sexual Orientation (if Verbalized by the Patient): Straight or Heterosexual S
--- NOTE | 2023-03-23 07:17 | P.OP_ITS ---
Procedure Note - Detailed Date of Procedure 03/23/23 Pre-op Diagnosis Dev Septum, Turbinate Hypertrophy Post-op Diagnosis Same Procedure Performed Septoplasty and bilateral inferior turbinoplasty Surgeon Rohan Huffman MD Anesthesia General Indications Nasal dyspnea Findings Right caudal septal deviation Chin splints placed Description of Procedure After obtaining informed consent and proper site verification the patient was brought to the operating room and placed on the operating table in the supine position. They were placed under general endotracheal anesthesia by the anesthesia provider. The patient was then draped in standard fashion for septoplasty and turbinoplasty. A timeout was performed and the correct patient and procedure were verified. The nasal cavity was injected with 1% lidocaine with 1-100,000 epinephrine and packed with afrin-soaked cottonoid pledgets. ? Attention was then directed to the nasal septum. A hemitransfixion incision was made in the left caudal septum and a mucoperichondrial flap was elevated in the usual fashion. The flap was elevated under endoscopic visualization and the remainder of the case was performed with endoscopic assistance. Using a D- knife, an incision was made through the cartilaginous septum with care to preserve the appropriate caudal and dorsal ?L-strut? of cartilage. The cartilage was then disarticulated from the bony-cartilaginous junction and the deviated cartilage was removed. Further deviated bone and cartilage was removed from the maxillary crest and posterior bony septum with care to avoid injury to the mucoperichondrial flap using a combination of dissection and José Miguel- Jenn forceps. Once this was completed, the hemitransfixion incision was closed using simple interrupted 4-0 chromic suture. A quilting stitch to jayshree pproximate the mucoperichondrial flaps was then placed using 4-0 plain gut suture on a Dixon needle. ? Next attention was directed to the turbinates. Using a 0? telescope and 2mm turbinate blade microdebrider, a stab incision was made in the anterior face of the turbinate and dissection was carried posterior to perform submucosal resection. Next the turbinate was outfractured using a blunt instrument. A similar procedure was then performed on the right-hand side without difficulty. Chin splints covered in mupirocin ointment were placed in the nasal cavity and secured to the membranous septum using a 3-0 Prolene suture. ?The patient was awakened from general anesthesia extubated in the operating room, and transported to the recovery room in stable condition without complication. Estimated Blood Loss 10 Drains No Packing Yes (chin splints) Pathology None sent Complications No immediate complications Condition Stable Disposition PACU
--- NOTE | 2023-03-23 07:17 | WPDHPUPDATE1 ---
History and Physical Update Update Date/Time: 03/23/23 07:17 History and Physical has been reviewed, including an updated exam of the patient. There are NO changes in the patient's condition. Risks, benefits, and alternatives have been discussed and questions answered. Patient agrees to proceed with procedure.
[2023-03-23] MEDS: ceFAZolin 2 GM/D5W 50 ML 2 GM/50 ML BAG IVPB (07:23)
[2023-03-23] MEDS: LIDO 1%/EPINEPHRINE 1:100,000 20 ML VIAL 10 ML INFILTRATE (07:41)
[2023-03-23] MEDS: MUPIROCIN 2% OINT 22 GM TUBE 1 APPLIC EACH NARE (08:13)
--- NOTE | 2023-03-23 08:25 | W.PM.PROC2 ---
Procedure Note - Detailed Date of Procedure 03/23/23 Pre-op Diagnosis Dev Septum, Turbinate Hypertrophy Post-op Diagnosis Same Procedure Performed Septoplasty, bilateral inferior turbinoplasty Surgeon Rohan Huffman MD Anesthesia General
== END 2023-03-23 10:28 | disposition home or self-care (01) ==
PROVIDERS: PCP Internal Medicine; Visit Provider Otolaryngology
PROC: (CPT 30520; principal; 2023-03-23 07:30)
PROC: (CPT 30520; 2023-03-23 07:30)
DX: J34.3 Hypertrophy of nasal turbinates (principal); D64.9 Anemia, unspecified; R53.83 Other fatigue; K21.9 Gastro-esophageal reflux disease without esophagitis; K58.0 Irritable bowel syndrome with diarrhea; G47.33 Obstructive sleep apnea (adult) (pediatric); J30.2 Other seasonal allergic rhinitis; Z79.891 Long term (current) use of opiate analgesic; Z82.49 Family history of ischemic heart disease and other diseases of the circulatory system
CPT/HCPCS: 30520; 30140; A9270; J0690; J1100; J2250; J2405; J2704; J3010; J7120

== ENCOUNTER 2023-09-22 09:22 | Outpatient (CLI) | payer MEDICARE, SELFPAY ==
--- NOTE | ~2023-09-22 | XR_ITS ---
Supine and upright views of the abdomen Clinical history: Right ureteral stone Findings: Bowel gas pattern is nonspecific. No evidence for obstruction or free air. Multiple small c alcified right pelvic phleboliths noted. No other abnormal calcific effusion seen. Osseous structures are intact. Impression: Probable calcified right pelvic phleboliths. Distal right ureteral stone not completely excluded. Cor relate currently. Reviewed, dictated and finalized at location . Impression: Probable calcified right pelvic phleboliths. Distal right ureteral stone not co mpletely excluded. Correlate currently.
== END 2023-09-22 09:23 | disposition home or self-care (01) ==
PROVIDERS: PCP Internal Medicine; Visit Provider Urology
DX: N20.1 Calculus of ureter (principal)
CPT/HCPCS: 74018